=== PATIENT | female | born 1985 | race Caucasian/White ===

== ENCOUNTER 2017-11-28 19:15 | Inpatient (IN) | payer OTHER ==
[2017-11-28 20:19] VITALS: BMI 41.8
[2017-11-28 20:30] LABS: BASO % 0.1 % (0-2.0); EOS % 0.1 % (0-4.5); HEMATOCRIT 38.2 % (32.4-45.2); HEMOGLOBIN 13.2 GM/dL (10.7-15.3); LYMPH % 13.8 % (8-40); MCH 31.1 pg (25.7-33.7); MCHC 34.6 g/dl (32.0-36.0); MEAN CELL VOLUME 89.7 fl (80-96); MEAN PLT VOLUME 10.2 fl (7.5-11.1); MONO % 6.9 % (3.8-10.2); NEUT % 79.1 % (42.8-82.8); PLATELET COUNT 139 K/MM3 (134-434); RBC 4.26 M/mm3 (3.60-5.2); RDW 14.5 % (11.6-15.6); WHITE BLOOD COUNT 8.9 K/mm3 (4.0-10.0)
[2017-11-28] MEDS ORDERED: TUBERCULIN PPD 5 TU/0.1ML SYRINGE (IN PATIENT USE ONLY) ID ONE (20:30)
[2017-11-28 20:57] LABS: INR 0.93 (0.82-1.09); PROTHROMBIN TIME (PATIENT) 10.5 SEC (9.98-11.88)
[2017-11-28 20:59] LABS: ANION GAP 12 (8-16); BLOOD UREA NITROGEN 12 mg/dL (7-18); CALCIUM 8.9 mg/dL (8.5-10.1); CHLORIDE 108 mmol/L (98-107); CO2 21 mmol/L (21-32); CREATININE 0.7 mg/dL (0.55-1.02); GLUCOSE,RANDOM 72 mg/dL (74-106); POTASSIUM 3.5 mmol/L (3.5-5.1); SODIUM 141 mmol/L (136-145)
[2017-11-28 21:00] LABS: ACTIVATED PTT 23.4 SECONDS (26.9-34.4)
[2017-11-28] MEDS: DEXTROSE 5%-LACTATED RINGERS 1,000 ML IV SCH (21:00)
[2017-11-28] MEDS ORDERED: DINOPROSTONE 10 MG VAGINAL SUPPOSITORY VG ONE (21:15)
--- NOTE | 2017-11-28 21:22 | HP ---
Past Medical History - Primary Care Physician PCP:: Dima Portillo - Admission Chief Complaint: 32yo P2 with at EGA 40w2d admitted for labor induction. History of Present Illness: complicated by: 1. Maternal obesity 2. Post term 3. Suspected macrosomia 4. GBS Positive History Source: Patient, Medical Record Limitations to Obtaining History: No Limitations - Past Medical History COOK JELLY: No: Alzheimer's, CVA, Dementia, Migraine, Multiple Sclerosis, Peripheral Neuropathy, Parkinson's, Seizure, Syncope, TIA, Vertigo, Other Cardiovascular: No: AFIB, Aneurysm, Aortic Insufficiency, Aortic Stenosis, CAD, CHF, Deep Vein Thrombosis, HTN, Hyperlipdemia, SC, Mitral Insufficiency, Mitral Stenosis, Murmur, Pulmonary Hypertension, Other Pulmonary: No: Asthma, Bronchitis, Cancer, COPD, O2 Dependent, Pneumonia, Previously Intubated, Pulmonary Embolus, Pulmonary Fibrosis, Sleep Apnea, Other Gastrointestinal: No: Ascites, Cancer, Constipation, Crohn's Disease, Diverticulitis, Diverticulosis, Esophageal Varices, Gastritis, GERD, GI Bleed, Hemorrhoids, Hiatal Hernia, Inflamatory Bowel Disease, Irritable Bowel Disease, Pancreatitis, Peptic Ulcer Disease, Ulcerative Colitis, Other Hepatobiliary: No: Cirrhosis, Cholelithiasis, Cholecystitis, Choledocholithiasis , Hepatitis A, Hepatitis B, Hepatitis C, Other Renal/: No: Renal Failure, Renal Inusuff, BPH, Cancer, Hematuria, Hemodialysis , Neurogenic Bladder, Renal Calculi, UTI, Other ...: 3 ...Para: 2 ( x 2) ...Term: 2 ...: 0 ...Spon : 0 ...Induced : 0 ...Multiple Gestation: 0 ...LMP: 02/24/18 ... Weeks Gestation by Dates: 39.4 ...EDC by Dates: 12/01/17 ...EDC by Sono: 11/26/17 Heme/Onc: No: Anemia, B12 Deficiency, Bleeding Disorder, Cancer, Current Chemotherapy, Current Radiation Therapy, Hemochromatosis, Hypercoaguable State, Myeloproliferative Synd, Sickle Cell Disease, Sickle Cell Trait, Thrombocytopenia, Other Infectious Disease: No: AIDS, C-Diff, Herpes Zoster, HIV, MRSA, STD's, Tuberculosis, VREF, Other Psych: No: Addictions, Anxiety, Bipolar, Depression, Panic, Psychosis, Schizophrenia, Other Musculoskeletal: No: Bursitis, Chronic low back pain, Hemiparesis, Hemiplegia, Osteoarthritis, Paraplegia, Other Rheumatology: No: Fibromyalgia, Gout, Lupus, Rheumatoid Arthritis, Sarcoidosis, Vasculitis, Other ENT: No: Allergic Rhinitis, Sinusitis, Other Endocrine: No: Anirudh's Disease, Enoc's Disease, Diabetes Insipidus, Diabetes Mellitus, Hyperparathyroidism, Hyperthyroidism, Hypothyroidism, Osteopenia, SIADH, Other Dermatology: No: Basal Cell, Cellulitis, Eczema, Melanoma, Psoriasis, Squamous Cell, Other - Past Surgical History Hx Myomectomy: No Hx Transabdominal Cerclage: No Additional Surgical History: Left Axillary gland excision - Smoking History Smoking history: Never smoked Have you smoked in the past 12 months: No - Alcohol/Substance Use Hx Alcohol Use: No History of Substance Use: reports: None - Social History Usual Living Arrangement: Yes: With Spouse, With Child ADL: Independent History of Recent Travel: No Home Medications - Allergies Allergies/Adverse Reactions: Allergies Allergy/AdvReac Type Severity Reaction Status Date / Time No Known Allergies Allergy Verified 11/28/17 20:03 - Home Medications Home Medications: Ambulatory Orders Vit/Iron Fum/Folic AC [ Tablet] 1 each PO DAILY 02/27/16 Polyethylene Glycol 3350 [Miralax (For Daily Use) -] 17 gm PO DAILY 11/28/17 Family Disease History - Family Disease History Family Disease History: CA: Father (Throat and tongue cancer) Review of Systems - Review of Systems Constitutional: reports: No Symptoms Eyes: reports: No Symptoms HENT: reports: No Symptoms Neck: reports: No Symptoms Cardiovascular: reports: No Symptoms Respiratory: reports: No Symptoms Gastrointestinal: reports: No Symptoms Genitourinary: reports: No Symptoms Breasts: reports: No Symptoms Reported Musculoskeletal: reports: No Symptoms Integumentary: reports: No Symptoms Neurological: reports: No Symptoms Endocrine: reports: No Symptoms Hematology/Lymphatic: reports: No Symptoms Psychiatric: reports: No Symptoms Pain Intensity: 0 Physical Exam - Maternity Vital Signs: Vital Signs Temperature 98.0 F 11/28/17 20:10 Pulse Rate 82 11/28/17 21:00 Respiratory Rate 20 11/28/17 21:00 Blood Pressure 118/77 11/28/17 21:00 O2 Sat by Pulse Oximetry (%) Constitutional: Yes: No Distress, Calm, Obese Eyes: Yes: WNL, Conjunctiva Clear HENT: Yes: WNL, Atraumatic, Normocephalic Neck: Yes: WNL, Supple, Trachea Midline Cardiovascular: Yes: WNL, Regular Rate and Rhythm Lungs: Clear to auscultation, Normal air movement - Abdominal Exam/OB Fundal Height: 41 Number of Fetuses: Single Presentation: Vertex Contractions: Yes Regularity: Irritability Intensity: Unaware Monitor Mode: External Heart Rate (range): 130 Category: I Accelerations: Uniform Decelerations: None - Vaginal Exam/OB Vaginal Bleediing: No Speculum Exam: No Dilatation (cm): 1 Effacement (%): 30 Amniotic Membrane Status: Intact Presentation: Vertex/Position Station: -3 (Adequate gynecoid pelvimetry) - Physical Exam Musculoskeletal: Yes: WNL Extremities: Yes: WNL Edema: Yes Edema: LLE: Trace, RLE: Trace Integumentary: Yes: WNL ...Motor Strength: WNL Psychiatric: Yes: WNL, Alert, Oriented - Labs Lab Results: CBC, BMP 11/28/17 20:15 11/28/17 20:15 Hemorrhage Risk Assessment - Risk Factors Medium Risk Factors: Yes: EFW greater than 4000g, Obesity (BMI >40) Risk Score: 2 Risk Level: High Risk Imaging - Results Ultrasound: Report Reviewed Assessment/Plan 32yo P2 with at EGA 40w2d admitted for labor induction. complicated by: 1. Maternal obesity-- GCT was negative, weight gain ~18lbs for the . Increased risks of hemorrhage, , shoulder dystocia, infection, preeclampsia, etc. explained. 2. Post term - The pt is admitted for labor indx. We had a long discussion re: risks, benefits, alternatives of labor indxn. Risks, benefits, alternatives of labor induction vs. expectant managemant were reviewed. Patient was explained that the induction of labor has risks, including but not limited to uterine tachysystole, distress, uterine atony, emergency section, bleeding, injury or even . Patient prefers to proceed with induction of labor. We discussed the medications that may be used including but not limited to Cervidil and/or pitocin. I explained the risks and benefits of meds. The fetus is with Category I tracing and does not require intervention. The patient has adequate pelvimetry. Plan to proceed with cervical ripening using Cervidil, followed by pitocin, as needed. 3. Suspected macrosomia- we discussed the risks at length, including but not limited to shoulder dystocia, abnormal labor, & maternal morbidity and mortality, etc. The pt declined elective C/S 4. GBS Positive- IV abx planned in active labor.
[2017-11-29] MEDS: DEXTROSE 5%-LACTATED RINGERS 1,000 ML IV SCH ×2 (04:42→10:00)
[2017-11-29] MEDS ORDERED: ACETAMINOPHEN 325 MG TABLET (FP) ONE (07:30)
[2017-11-29] MEDS ORDERED: ACETAMINOPHEN 325 MG TABLET (FP) PO ONE (08:15)
--- NOTE | 2017-11-29 08:37 | PN ---
Ante-Partal Exam - Subjective Subjective: Pt w/o complaints. She does not feel contractions. Cervidil was removed at 7: 15am. Vital Signs: Vital Signs Temperature 97.7 F 11/29/17 08:00 Pulse Rate 83 11/29/17 08:00 Respiratory Rate 18 11/29/17 08:00 Blood Pressure 125/82 11/29/17 08:00 O2 Sat by Pulse Oximetry (%) Bleeding: No Headache: No Visual changes: No Right upper quadrant pain: No Pain (scale 1-10): 0 - Contractions Contractions: Yes Regularity: Irritability Intensity: Unaware Monitor Mode: External - Exam during Labor Heart Rate: 130 Variability: Moderate Heart Rate Location: Midline Category: I Monitor Accelerations: Present Monitor Decelerations: None Exam: Vaginal Dilatation (cm): 1 Effacement (%): 30 Amniotic Membrane Status: Intact Station: -4 Remarks: Adequate gynecoid pelvimetry - Intrapartum Hemorrhage Risk Medium Risk Factors: None High Risk Factors: None Risk Score: 0 Risk Level: Low Risk - Assessment/Plan Assessment/Plan: 32yo P2 with post term . Pt is s/p Cervidil for cervical ripening, with not improvement in Brantley score and not in labor. tracing is Category I. Plan to try induction with Pitocin.
[2017-11-29] MEDS ORDERED: OXYTOCIN 30 UNITS in 0.9% NS 30 UNIT/500 ML INFUS.BAG IVPB SCH (09:00)
[2017-11-29] MEDS ORDERED: OXYTOCIN 30 UNITS in 0.9% NS 30 UNIT/500 ML INFUS.BAG IVPB ONE (09:09)
[2017-11-29] MEDS ORDERED: AMPICILLIN SODIUM 2 GM VIAL ONE (10:48)
[2017-11-29] MEDS ORDERED: AMPICILLIN - 2 GM in SODIUM CHLORIDE 100 ML IVPB ONE (11:15)
[2017-11-29] MEDS ORDERED: FENTANYL/BUPIVACAINE/NS/PF - PCEA - 50 ML DISP.SYRIN EP ONE (12:41)
[2017-11-29] MEDS ORDERED: LIDO 2%/EPI 1:200000 PRESRVFRE (20 ML SDVIAL) ONE (13:01)
[2017-11-29] MEDS ORDERED: BUPIVACAINE HCL/PF 0.25% (2.5MG/ML) 10 ML VIAL ONE (13:01)
[2017-11-29] MEDS: FENTANYL/BUPIVACAINE/NS/PF - PCEA - 50 ML DISP.SYRIN EP SCH (13:30)
[2017-11-29] MEDS ORDERED: NALOXONE HCL 0.4 MG/ML VIAL IVPUSH PRN (13:40)
[2017-11-29] MEDS: AMPICILLIN - 1 GM in SODIUM CHLORIDE 100 ML IVPB SCH (15:00)
[2017-11-29] MEDS ORDERED: OXYTOCIN 20 UNITS in 0.9% NS 20 UNIT/1,000 ML INFUS.BAG IV ONE (16:10)
[2017-11-29] MEDS ORDERED: LIDOCAINE HCL 1% PRESERVATIVE FREE - 30ML VIAL ONE (16:10)
[2017-11-29] MEDS ORDERED: BENZOCAINE 28 GM HEMORRHOIDAL OINTMENT TP PRN (16:30)
[2017-11-29] MEDS ORDERED: BENZOCAINE 20% 57 GM BOTTLE TP PRN (16:30)
[2017-11-29] MEDS ORDERED: METHYLERGONOVINE MALEATE 0.2 MG/1 ML AMP IM PRN (16:30)
[2017-11-29] MEDS ORDERED: WITCH HAZEL 50% (TUCKS) 40 PAD/JAR PAD TP PRN (16:30)
[2017-11-29] MEDS ORDERED: BISACODYL 10 MG SUPP.RECT RC PRN (16:30)
[2017-11-29] MEDS ORDERED: OXYTOCIN 20 UNITS in 0.9% NS 20 UNIT/1,000 ML INFUS.BAG IV SCH (16:30)
--- NOTE | 2017-11-29 16:44 | PN ---
Ante-Partal Exam - Subjective Subjective: Pt is c/o pelvic pressure Vital Signs: Vital Signs Temperature 97.6 F 11/29/17 15:25 Pulse Rate 79 11/29/17 15:45 Respiratory Rate 18 11/29/17 15:45 Blood Pressure 114/74 11/29/17 15:45 O2 Sat by Pulse Oximetry (%) 100 11/29/17 15:45 Bleeding: No Headache: No Visual changes: No Right upper quadrant pain: No Pain (scale 1-10): 7 - Contractions Contractions: Yes Regularity: Regular Intensity: Moderate (by palpation) Monitor Mode: External - Exam during Labor Heart Rate: 130 Variability: Moderate Heart Rate Location: Midline Category: II Monitor Accelerations: Absent Exam: Vaginal Dilatation (cm): 10 Effacement (%): 100 Amniotic Membrane Status: Ruptured Amniotic Fluid: Meconium Stained Meconium Staining: Thick Presentation: Vertex Station: +1 - Intrapartum Hemorrhage Risk Medium Risk Factors: None High Risk Factors: None Risk Score: 2 Risk Level: High Risk - Assessment/Plan Assessment/Plan: pt is pushing Shoulder dystocia precautions Miah notified 2nd OB on standby
[2017-11-29 17:19] LABS: VENOUS PC02 38.4 mmHg (38-52); VENOUS PH 7.38 (7.32-7.42); VENOUS PO2 31.5 mmHg (28-48)
[2017-11-29 17:36] LABS: ARTERIAL BLOOD GAS pH 7.38 (7.35-7.45)
[2017-11-29 17:38] LABS: ARTERIAL BLD GAS O2 SATURATION 70.9 % (90-98.9); ARTERIAL BLOOD GAS PO2 30.9 mmHg (80-100)
[2017-11-29] MEDS: ACETAMINOPHEN 325 MG TABLET (FP) PO PRN (21:17)
[2017-11-29] MEDS: IBUPROFEN 600 MG TABLET (FP) PO PRN (21:18)
[2017-11-30] MEDS: AMPICILLIN - 1 GM in SODIUM CHLORIDE 100 ML IVPB SCH (00:50)
--- NOTE | 2017-11-30 04:11 | PN ---
Post Progress Note - Subjective Subjective: Patient without acute complaints. Reports tolerating oral intake without nausea or vomiting. Ambulating without dizziness. Denies fevers or chills. Pain well controlled with oral pain medication. without difficulty. Passing flatus. Post Day: 1 Type of Delivery: Vital Signs: Vital Signs Temperature 98.6 F 11/30/17 02:00 Pulse Rate 86 11/30/17 02:00 Respiratory Rate 20 11/30/17 02:00 Blood Pressure 106/61 11/30/17 02:00 O2 Sat by Pulse Oximetry (%) 100 11/29/17 17:15 Breast Exam: Yes: Soft Uterus: Yes: Fundus Firm, Fundus below umbilicus Abdomen/GI: Yes: Abdomen soft, Passing flatus, Tolerating PO. No: Abdominal Distention, Tender Lochia: Yes: Serosa Lochia, amount: Moderate Extremities: Yes: Calves non-tender, Edema (+1) Perineum: Yes: Laceration Activity: Ambulating - Labs Labs: CBC WBC 8.9 K/mm3 (4.0-10.0) 11/28/17 20:15 RBC 4.26 M/mm3 (3.60-5.2) 11/28/17 20:15 Hgb 13.2 GM/dL (10.7-15.3) D 11/28/17 20:15 Hct 38.2 % (32.4-45.2) D 11/28/17 20:15 MCV 89.7 fl (80-96) 11/28/17 20:15 MCH 31.1 pg (25.7-33.7) 11/28/17 20:15 MCHC 34.6 g/dl (32.0-36.0) 11/28/17 20:15 RDW 14.5 % (11.6-15.6) 11/28/17 20:15 Plt Count 139 K/MM3 (134-434) 11/28/17 20:15 MPV 10.2 fl (7.5-11.1) D 11/28/17 20:15 Neutrophils % 79.1 % (42.8-82.8) 11/28/17 20:15 Lymphocytes % 13.8 % (8-40) 11/28/17 20:15 Monocytes % 6.9 % (3.8-10.2) 11/28/17 20:15 Eosinophils % 0.1 % (0-4.5) D 11/28/17 20:15 Basophils % 0.1 % (0-2.0) 11/28/17 20:15 Assessment/Plan 32 yo PPD # 1 s/p , afebrile, vital signs stable, doing well 1. Continue routine care. 2. Follow up AM CBC 3. Rh positive status, no rhogam indicated. 4. Encourage ambulation 5. Continue oral pain medication 6. Anticipate discharge home day #2
[2017-11-30] MEDS: ACETAMINOPHEN 325 MG TABLET (FP) PO PRN ×2 (05:41→10:29)
[2017-11-30] MEDS: IBUPROFEN 600 MG TABLET (FP) PO PRN ×3 (05:41→19:39)
--- NOTE | 2017-11-30 06:51 | DS ---
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 Vital Signs: Vital Signs Temperature 98.6 F 11/30/17 02:00 Pulse Rate 86 11/30/17 02:00 Respiratory Rate 20 11/30/17 02:00 Blood Pressure 106/61 11/30/17 02:00 O2 Sat by Pulse Oximetry (%) 100 11/29/17 17:15 Labs: CBC, BMP 11/28/17 20:15 11/28/17 20:15 Delivery - Delivery Type of Anesthesia: Local, Epidural Episiotomy/Laceration: Midline, Perineal Extension/lac, 2nd degree EBL (cc): 300 Delivery, Single - Stages of Labor Date 1st Stage Initiatied: 11/29/17 Time 1st Stage Initiated: 10:00 Date 2nd Stage Initiated: 11/29/17 Time 2nd Stage Initiated: 16:10 Date of Delivery: 11/29/17 Time of Delivery: 16:23 Time Placenta Delivered: 16:35 - Condition of Infant Junior Mechanical Engineer/Culinary Manager Present: Yes Name: Brinda Robison Infant Gender: Male Weight: 10 lb 9 oz Position: OA Total Hours ROM (Hrs/Mins): 1HOUR/5MIN - 1 Minute Total Score: 8 5 Minutes Total Score: 9 - Feeding Plan Initial Plan: Exclusive throughout hospitalization Discharge Summary Reason For Visit: ADMIT INDUCTION Procedures: Principal: vaginal delivery Other Procedures: induction of labor Hospital Course: patient admitted for IOL, progressed to ambulating, voiding, passing gas and tolerating oral intake PPD # 1 Stable for discharge home PPD #2 Condition: Good - Instructions Diet, Activity, Other Instructions: Physical activity Resume your normal everyday activity as tolerated no heavy lifting or exercise until seen by your surgeon. You may walk unlimited christie of and climb stairs. You may resume driving the car when you feel safe and comfortable behind the wheel. No sexual activity as instructed. Diet There are no dietary restrictions. Eat healthy, high-fiber foods. Drink 6 to 8 glasses of liquid each day. This will assist in keeping your bowels are regular. Pain management You may take Tylenol or acetaminophen or Ibuprofen (for example, Motrin, Advil etc.) from my pain prescription medication is ordered should be taken as prescribed for moderate to severe pain. Call MD for any of the following: Severe pain not relieved by medication Fever of 101 or higher Excessive bleeding or drainage on dressing Inability to urinate Disposition: HOME - Home Medications Comprehensive Discharge Medication List: Ambulatory Orders Vit/Iron Fum/Folic AC [ Tablet] 1 each PO DAILY 02/27/16 Polyethylene Glycol 3350 [Miralax (For Daily Use) -] 17 gm PO DAILY 11/28/17
[2017-11-30 07:41] LABS: BASO % 0.1 % (0-2.0); EOS % 0.3 % (0-4.5); HEMATOCRIT 32.7 % (32.4-45.2); HEMOGLOBIN 11.2 GM/dL (10.7-15.3); MCH 31.2 pg (25.7-33.7); MCHC 34.4 g/dl (32.0-36.0); MEAN CELL VOLUME 90.5 fl (80-96); MEAN PLT VOLUME 9.9 fl (7.5-11.1); MONO % 5.6 % (3.8-10.2); PLATELET COUNT 111 K/MM3 (134-434); RBC 3.61 M/mm3 (3.60-5.2); RDW 14.6 % (11.6-15.6); WHITE BLOOD COUNT 8.3 K/mm3 (4.0-10.0)
[2017-11-30] MEDS: oxyCODONE HCL 5 MG TABLET PO PRN ×2 (13:17→19:39)
[2017-11-30] MEDS ORDERED: SENNOSIDES/DOCUSATE COMBO (SENNA PLUS) TABLET (UD) PO PRN (22:00)
[2017-11-30] MEDS: FENTANYL/BUPIVACAINE/NS/PF - PCEA - 50 ML DISP.SYRIN EP SCH (22:44)
--- NOTE | 2017-12-01 07:22 | PN ---
Progress Note (short form) - Note Progress Note: ppd 2 doing well, no c/o uterus firm, non tender lochia mild no calf tenderness CBC, BMP 11/30/17 06:00 11/28/17 20:15 Last Vital Signs Temp Pulse Resp BP Pulse Ox 98.0 F 82 20 127/71 99 11/30/17 21:55 11/30/17 21:55 11/30/17 21:55 11/30/17 21:55 11/30/17 21:55 plan d/c home . follow up office 4 weeks
[2017-12-01 08:28] VITALS: BP 124/78; PULSE 93; TEMP 98.2
== END 2017-12-01 13:55 | disposition home or self-care (01) | DRG 775 ==
LOC: JLDR 19:15 → J3W 11-29 17:55
PROVIDERS: ADMIT Obstetrics & Gynecology; ATTEND Obstetrics & Gynecology
PROC: 10E0XZZ Delivery of Products of Conception, External Approach (ICD-10-PCS; principal; 2017-11-29)
PROC: 0KQM0ZZ Repair Perineum Muscle, Open Approach (ICD-10-PCS; 2017-11-29)
PROC: 0W8NXZZ Division of Female Perineum, External Approach (ICD-10-PCS; 2017-11-29)
DX: O48.0 Post-term pregnancy (principal); Z68.41 Body mass index [BMI] 40.0-44.9, adult; O36.63X0 Maternal care for excessive fetal growth, third trimester, not applicable or unspecified; O99.213 Obesity complicating pregnancy, third trimester; E66.9 Obesity, unspecified; O99.824 Streptococcus B carrier state complicating childbirth; O77.0 Labor and delivery complicated by meconium in amniotic fluid; O70.1 Second degree perineal laceration during delivery; Z3A.40 40 weeks gestation of pregnancy; Z37.0 Single live birth
CPT/HCPCS: 36415; 36600; 59409; 71046-TC-FY; 72170-TC-FY; 80048; 82803; 85025; 85610; 85730; 86593; 86850; 86900; 86901